=== PATIENT | female | born 1975 | race American Indian/Alaskan Native ===

== ENCOUNTER 2021-01-15 00:22 | Inpatient (IN) | payer BC ==
[2021-01-15 02:52] LABS: Basophils % (Auto) 0.2 % (0.0-1.8); Eosinophils % (Auto) 0.1 % (0.0-4.3); Hematocrit 40.5 % (30.3-42.9); Lymphocytes # (Auto) 1.3 K/mm3 (1.2-5.4); Lymphocytes % (Auto) 9.7 % (13.4-35.0); Mean Corpuscular HGB Conc 35 % (30-34); Mean Corpuscular Volume 90 fl (79-97); Monocytes # (Auto) 0.7 K/mm3 (0.0-0.8); Monocytes % (Auto) 5.7 % (0.0-7.3); Platelet Count 335 K/mm3 (140-440); Red Cell Distribution Width 12.9 % (13.2-15.2)
[2021-01-15 02:54] LABS: Bacteria,Urine 2+ /HPF (Negative); Bilirubin,Urine NEG (Negative); Blood,Urine SM (Negative); Color,Urine Yellow (Yellow); Hyaline Casts,Urine 1 /LPF; Mucus,Urine 3+ /HPF; Protein,Urine <15 mg/dL mg/dL (Negative)
[2021-01-15 03:22] LABS: Alanine Aminotransferase 91 units/L (7-56); Albumin 4.2 g/dL (3.9-5); BUN/Creatinine Ratio 14; Blood Urea Nitrogen 11 mg/dL (7-17); Calcium 9.1 mg/dL (8.4-10.2); Hemolysis Index 7
[2021-01-15] MEDS ORDERED: SODIUM CHLORIDE 0.9% 1000 ML 1,000 ML IV ONE (05:45)
[2021-01-15] MEDS ORDERED: ONDANSETRON 4 MG/2 ML INJ IV ONE (05:45)
[2021-01-15 06:22] LABS: HCG Qualitative,Urine Negative (Negative)
--- NOTE | 2021-01-15 06:50 | Cat Scan Report ---
CT ABDOMEN AND PELVIS WITHOUT CONTRAST INDICATION / CLINICAL INFORMATION: Questionable renal stone(s). Flank pain. TECHNIQUE: Axial CT images were obtained through the abdomen and pelvis without IV contrast. All CT scans at this location are performed using CT dose reduction for ALARA by means of automated exposure control. COMPARISON: None available. FINDINGS: LOWER CHEST: No significant abnormality. LIVER: No significant abnormality. GALLBLADDER: Multiple gallstones with mild wall thickening. Mild adjacent inflammation posteriorly. BILE DUCTS: No significant abnormality. PANCREAS: No significant abnormality. SPLEEN: No significant abnormality. ADRENALS: No significant abnormality. RIGHT KIDNEY / URETER: No significant abnormality. LEFT KIDNEY / URETER: No significant abnormality. STOMACH / SMALL BOWEL: No significant abnormality. COLON: No significant abnormality. APPENDIX: No significant abnormality. PERITONEUM: No free fluid. No free air. No fluid collection. LYMPH NODES: No significant adenopathy. VASCULAR STRUCTURES: No significant abnormality. URINARY BLADDER: No significant abnormality. REPRODUCTIVE ORGANS: IUD appears in satisfactory position. ADDITIONAL FINDINGS: None. SKELETAL SYSTEM: No significant abnormality. IMPRESSION: Gallstones with mild distention, adjacent inflammation and wall thickening worrisome for early cholecystitis. Signer Name: Renny Rose MD Signed: 01/15/2021 6:45 AM Workstation Name: [id number]
[2021-01-15] MEDS ORDERED: PIPERACILLIN/TAZOBACTAM 3.375 3.375 GM/50 ML BAG IV ONE (07:14)
[2021-01-15] MEDS ORDERED: MORPHINE 4 MG/1 ML INJ IV ONE (07:15)
--- NOTE | 2021-01-15 07:15 | Emergency Department Report ---
ED Abdominal Pain HPI - General Chief Complaint: Abdominal Pain Stated Complaint: GALLBLADDER PAIN Time Seen by Provider: 01/15/21 07:08 Source: patient Mode of arrival: Ambulatory Limitations: No Limitations - History of Present Illness Initial Comments: 45-year-old female presents to the ER today complaint of epigastric/right upper quadrant abdominal pain. Patient states that her pain started around 1030 last night. She states that it was a constant pain that radiated into her back. She states that last night it was a 10 out of 10 pain. Patient has been in the ER now for about 6 hours, and she states that her pain is now 6 out of 10. She rep orts nausea but no vomiting. She denies any diarrhea or any other bowel changes. She states that the pain last night started after she ate rice, chicken and bread. She reports that she had similar symptoms but milder around January 05. She saw her primary care doctor who ordered her an outpatient ultrasound and it did show gallstones. She states that her primary care doctor was supposed to refer her to a surgeon but she has not done so as yet. Patient states that she has been monitoring her diet, but she thought that since she was feeling better she is decided to eat a little more last night. She denies any abdominal surgeries in the past. Her last menstrual cycle was around January 04. She reports no other symptoms at this time. MD Complaint: abdominal pain -: Sudden (around 1030 last night ) Severity scale (0 -10): 2 - Related Data Allergies Allergy/AdvReac Type Severity Reaction Status Date / Time No Known Allergies Allergy Unverified 01/15/21 02:07 ED Review of Systems ROS: Stated complaint: GALLBLADDER PAIN Other details as noted in HPI Comment: All other systems reviewed and negative Constitutional: denies: chills, fever Eyes: denies: eye pain, eye discharge, vision change ENT: denies: ear pain, throat pain Respiratory: denies: cough, shortness of breath, wheezing Cardiovascular: denies: chest pain, palpitations Gastrointestinal: abdominal pain, nausea. denies: vomiting, diarrhea, constipation, hematemesis, melena, hematochezia Genitourinary: denies: urgency, dysuria, frequency, hematuria, discharge, ab normal menses, dyspareunia Musculoskeletal: denies: back pain, joint swelling, arthralgia Skin: denies: rash, lesions, change in color, change in hair/nails, pruritus Neurological: denies: headache, weakness, numbness, paresthesias, confusion, abnormal gait, vertigo Psychiatric: denies: anxiety, depression Hematological/Lymphatic: denies: easy bleeding, easy bruising, swollen glands ED Past Medical Hx - Past Medical History Previous Medical History?: No - Surgical History Past Surgical History?: No - Social History Smoking Status: Never Smoker Substance Use Type: None ED Physical Exam - General Limitations: No Limitations General appearance: alert, in no apparent distress - Head Head exam: Present: atraumatic, normocephalic, normal inspection - Eye Eye exam: Present: normal appearance, PERRL, EOMI Pupils: Present: normal accommodation - ENT ENT exam: Present: normal exam, mucous membranes moist - Neck Neck exam: Present: normal inspection, full ROM - Respiratory Respiratory exam: Present: normal lung sounds bilaterally. Absent: respiratory distress - Cardiovascular Cardiovascular Exam: Present: regular rate, normal rhythm, normal heart sounds - GI/Abdominal GI/Abdominal exam: Present: soft, tenderness (Right upper quadrant with mild guarding but no rebound). Absent: distended, rebound, rigid - Neurological Exam Neurological exam: Present: alert, oriented X3, CN II-XII intact, normal gait - Psychiatric Psychiatric exam: Present: normal affect, normal mood - Skin Skin exam: Present: intact ED Course Vital Signs 01/15/21 01/15/21 01/15/21 02:06 06:45 08:15 Temperature 98.9 F Pulse Rate 86 75 71 Respiratory 16 15 Rate Blood Pressure 139/66 Blood Pressure 111/65 [Left] O2 Sat by Pulse 99 99 Oximetry ED Medical Decision Making - Lab Data Result diagrams: 01/15/21 02:39 01/15/21 02:39 - Radiology Data Patient: JOSE CHAVEZ MR#: [id number] 28 : 1975 Acct:[id number] Age/Sex: 45 / F ADM Date: 01/15/21 Loc: ED Attending Dr: Ordering Physician: AYDEE IZQUIERDO NP Date of Service: 01/15/21 Procedure(s): CT abdomen pelvis wo con Accession Number(s): [id number] cc: AYDEE IZQUIERDO NP CT ABDOMEN AND PELVIS WITHOUT CONTRAST INDICATION / CLINICAL INFORMATION: Questionable renal stone(s). Flank pain. TECHNIQUE: Axial CT images were obtained through the abdomen and pelvis without IV contrast. All CT scans at this location are performed using CT dose reduction for ALARA by means of automated exposure control. COMPARISON: None available. FINDINGS: LOWER CHEST: No significant abnormality. LIVER: No significant abnormality. GALLBLADDER: Multiple gallstones with mild wall thickening. Mild adjacent inflammation posteriorly. BILE DUCTS: No significant abnormality. PANCREAS: No significant abnormality. SPLEEN: No significant abnormality. ADRENALS: No significant abnormality. RIGHT KIDNEY / URETER: No significant abnormality. LEFT KIDNEY / URETER: No significant abnormality. STOMACH / SMALL BOWEL: No significant abnormality. COLON: No significant abnormality. APPENDIX: No significant abnormality. PERITONEUM: No free fluid. No free air. No fluid collection. LYMPH NODES: No significant adenopathy. VASCULAR STRUCTURES: No significant abnormality. URINARY BLADDER: No significant abnormality. REPRODUCTIVE ORGANS: IUD appears in satisfactory position. ADDITIONAL FINDINGS: None. SKELETAL SYSTEM: No significant abnormality. IMPRESSION: Gallstones with mild distention, adjacent inflammation and wall thickening worrisome for early cholecystitis. Signer Name: Renny Rose MD Signed: 01/15/2021 6:45 AM Workstation Name: [id number] Transcribed By: ES Dictated By: Renny Rose MD Electronically Authenticated By: Renny Rose MD Signed Date/Time: 01/15/21644 DD/ 9 TD/TT: - Medical Decision Making 0733: Labs reviewed including CT. CT shows signs of early cholecystitis, patient also has leukocytosis with a white count of 13, and some elevation to AST and ALT. Discussed case with Dr. Bautista, general surgeon lathe operator contact lens and she has agreed to admission. Recommend admitting to medicine and she will consult. Discussed case with hospitalist, he accepts admission and for patient to be admitted to Dr Stokes. Discussed reason for admission with patient. She agrees with plan. She is currently stable. Critical care attestation.: If time is entered above; I have spent that time in minutes in the direct care of this critically ill patient, excluding procedure time. ED Disposition Clinical Impression: Acute cholecystitis Disposition: OP ADMIT IP TO THIS HOSP Is pt being admited?: Yes Condition: Stable
--- NOTE | 2021-01-15 09:29 | Consultation ---
History of Present Illness Consult date: 01/15/21 Reason for consult: gallstones - History of present illness History of present illness: 45 year old female presented to ED overnight with acute worsening abdominal pain. She had similar pain 01/05/2021 and had an US ordered by her pcp that showed gallstones. She was supposed to be referred to a surgeon but had not heard back. She had been feeling better since then, but ate a large meal last night that caused the pain to return even worse. She says the pain is 8/10 RUQ and radiates to her back. CT scan showed stones and a dilated gallbladder with inflammation. She also complains of some n/v, and has a significant family hx of gallbladder disease. She says she would like to have her gallbladder removed to try to avoid further attacks. Past History Past Medical History: hypothyroidism Past Surgical History: No surgical history Social history: no significant social history Medications and Allergies Allergies Allergy/AdvReac Type Severity Reaction Status Date / Time No Known Allergies Allergy Unverified 01/15/21 02:07 Review of Systems - Constitutional poor appetite - Cardiovascular no chest pain - Respiratory no cough, no shortness of breath - Gastrointestinal abdominal pain, nausea, vomiting Exam Vital Signs Temp Pulse Resp BP Pulse Ox 98.9 F 86 16 139/66 99 01/15/21 02:06 01/15/21 02:06 01/15/21 02:06 01/15/21 02:06 01/15/21 02:06 - General physical appearance Positive: well developed, no distress, moderate pain - Respiratory Positive: normal expansion, normal respiratory effort - Cardiovascular Heart Sounds: Present: S1 & S2 - Extremities Extremities: no ischemia - Abdomen Abdomen: Present: soft, other (tender to palpation RUQ, and epigastric areas). Absent: distended Results - Labs 01/15/21 02:39 01/15/21 02:39 Abnormal lab results 01/15/21 01/15/21 01/15/21 Range/Units 02:39 02:39 Unknown WBC 13.0 H (4.5-11.0) K/mm3 MCHC 35 H (30-34) % RDW 12.9 L (13.2-15.2) % Lymph % (Auto) 9.7 L (13.4-35.0) % Seg Neutrophils % 84.3 H (40.0-70.0) % Seg Neutrophils # 11.0 H (1.8-7.7) K/mm3 Glucose 114 H (65-100) mg/dL AST 171 H (5-40) units/L ALT 91 H (7-56) units/L Urine WBC (Auto) 16.0 H (0.0-6.0) /HPF U Epithel Cells (Auto) 17.0 H (0-13.0) /HPF Diabetes panel 01/15/21 Range/Units 02:39 Sodium 142 (137-145) mmol/L Potassium 4.1 (3.6-5.0) mmol/L Chloride 104.5 (98-107) mmol/L Carbon Dioxide 28 (22-30) mmol/L BUN 11 (7-17) mg/dL Creatinine 0.8 (0.6-1.2) mg/dL Glucose 114 H (65-100) mg/dL Calcium 9.1 (8.4-10.2) mg/dL AST 171 H (5-40) units/L ALT 91 H (7-56) units/L Alkaline Phosphatase 102 (35-129) units/L Total Protein 7.7 (6.3-8.2) g/dL Albumin 4.2 (3.9-5) g/dL Calcium panel 01/15/21 Range/Units 02:39 Calcium 9.1 (8.4-10.2) mg/dL Albumin 4.2 (3.9-5) g/dL Pituitary panel 01/15/21 Range/Units 02:39 Sodium 142 (137-145) mmol/L Potassium 4.1 (3.6-5.0) mmol/L Chloride 104.5 (98-107) mmol/L Carbon Dioxide 28 (22-30) mmol/L BUN 11 (7-17) mg/dL Creatinine 0.8 (0.6-1.2) mg/dL Glucose 114 H (65-100) mg/dL Calcium 9.1 (8.4-10.2) mg/dL Adrenal panel 01/15/21 Range/Units 02:39 Sodium 142 (137-145) mmol/L Potassium 4.1 (3.6-5.0) mmol/L Chloride 104.5 (98-107) mmol/L Carbon Dioxide 28 (22-30) mmol/L BUN 11 (7-17) mg/dL Creatinine 0.8 (0.6-1.2) mg/dL Glucose 114 H (65-100) mg/dL Calcium 9.1 (8.4-10.2) mg/dL Total Bilirubin 0.80 (0.1-1.2) mg/dL AST 171 H (5-40) units/L ALT 91 H (7-56) units/L Alkaline Phosphatase 102 (35-129) units/L Total Protein 7.7 (6.3-8.2) g/dL Albumin 4.2 (3.9-5) g/dL - Imaging CT scan - abdomen: report reviewed, image reviewed CT scan - pelvis: report reviewed, image reviewed Assessment and Plan 45 year old female with cholecystitis, cholelithiasis. Afebrile and stable. Pt is consented for lap shelley scheduled for later today. Pt expressed understanding of the risks and benefits.
--- NOTE | 2021-01-15 09:30 | Event Note ---
Date: 01/15/21 Consulted on pt for cholecystitis. Will evaluate patient later this morning when done with office hours. If pt consents and she meets clinical criteria, will take to OR this afternoon for lap shelley.
--- NOTE | 2021-01-15 09:53 | History and Physical Report ---
History of Present Illness Date of admission: 01/15/21 07:37 History of present illness: 45 year old female with a medical history of hypothyroidism presented to ED overnight with acute worsening abdominal pain. Patient states that she has had similar pain in the past was told that she had gallstones. She was supposed to see general surgeon but has not been able to do that. She started having similar abdominal pain last night and presented to the emergency room for evaluation. Here in the ER, abdominal imaging showed stones with possible cholecystitis and she is now being admitted for further evaluation. Surgery has evaluated the patient and she will be going for laparoscopic cholecystectomy. Past History Past Medical History: hypothyroidism Past Surgical History: No surgical history Social history: Medications and Allergies Allergies Allergy/AdvReac Type Severity Reaction Status Date / Time No Known Allergies Allergy Unverified 01/15/21 02:07 Review of Systems All systems: negative Exam - Constitutional Vitals: Temp Pulse Resp BP Pulse Ox 98.9 F 71 15 111/65 99 01/15/21 02:06 01/15/21 08:15 01/15/21 06:45 01/15/21 08:15 01/15/21 06:45 General appearance: Present: no acute distress, well-nourished - EENT Eyes: Present: PERRL ENT: hearing intact, clear oral mucosa - Neck Neck: Present: supple, normal ROM - Respiratory Respiratory effort: normal Respiratory: bilateral: CTA - Cardiovascular Heart Sounds: Present: S1 & S2. Absent: rub, click - Extremities Extremities: pulses symmetrical, No edema Peripheral Pulses: within normal limits - Abdominal General gastrointestinal: Present: soft, non-tender, non-distended, normal bowel sounds Female genitourinary: Present: normal - Integumentary Integumentary: Present: clear, warm, dry - Musculoskeletal Musculoskeletal: gait normal, strength equal bilaterally - Psychiatric Psychiatric: appropriate mood/affect, intact judgment & insight - Neurologic Neurologic: CNII-XII intact, moves all extremities Results - Labs CBC & Chem 7: 01/15/21 02:39 01/15/21 02:39 Labs: Laboratory Last Values WBC 13.0 K/mm3 (4.5-11.0) H 01/15/21 02:39 RBC 4.50 M/mm3 (3.65-5.03) 01/15/21 02:39 Hgb 14.0 gm/dl (10.1-14.3) 01/15/21 02:39 Hct 40.5 % (30.3-42.9) 01/15/21 02:39 MCV 90 fl (79-97) 01/15/21 02:39 MCH 31 pg (28-32) 01/15/21 02:39 MCHC 35 % (30-34) H 01/15/21 02:39 RDW 12.9 % (13.2-15.2) L 01/15/21 02:39 Plt Count 335 K/mm3 (140-440) 01/15/21 02:39 Lymph % (Auto) 9.7 % (13.4-35.0) L 01/15/21 02:39 [place] % (Auto) 5.7 % (0.0-7.3) 01/15/21 02:39 Eos % (Auto) 0.1 % (0.0-4.3) 01/15/21 02:39 Baso % (Auto) 0.2 % (0.0-1.8) 01/15/21 02:39 Lymph # (Auto) 1.3 K/mm3 (1.2-5.4) 01/15/21 02:39 [place] # (Auto) 0.7 K/mm3 (0.0-0.8) 01/15/21 02:39 Eos # (Auto) 0.0 K/mm3 (0.0-0.4) 01/15/21 02:39 Baso # (Auto) 0.0 K/mm3 (0.0-0.1) 01/15/21 02:39 Seg Neutrophils % 84.3 % (40.0-70.0) H 01/15/21 02:39 Seg Neutrophils # 11.0 K/mm3 (1.8-7.7) H 01/15/21 02:39 Sodium 142 mmol/L (137-145) 01/15/21 02:39 Potassium 4.1 mmol/L (3.6-5.0) 01/15/21 02:39 Chloride 104.5 mmol/L (98-107) 01/15/21 02:39 Carbon Dioxide 28 mmol/L (22-30) 01/15/21 02:39 Anion Gap 14 mmol/L 01/15/21 02:39 BUN 11 mg/dL (7-17) 01/15/21 02:39 Creatinine 0.8 mg/dL (0.6-1.2) 01/15/21 02:39 Estimated GFR > 60 ml/min 01/15/21 02:39 BUN/Creatinine Ratio 14 % 01/15/21 02:39 Glucose 114 mg/dL (65-100) H 01/15/21 02:39 Calcium 9.1 mg/dL (8.4-10.2) 01/15/21 02:39 Total Bilirubin 0.80 mg/dL (0.1-1.2) 01/15/21 02:39 AST 171 units/L (5-40) H 01/15/21 02:39 ALT 91 units/L (7-56) H 01/15/21 02:39 Alkaline Phosphatase 102 units/L (35-129) 01/15/21 02:39 Total Protein 7.7 g/dL (6.3-8.2) 01/15/21 02:39 Albumin 4.2 g/dL (3.9-5) 01/15/21 02:39 Albumin/Globulin Ratio 1.2 % 01/15/21 02:39 Lipase 30 units/L (13-60) 01/15/21 02:39 Urine Color Yellow (Yellow) 01/15/21 Unknown Urine Turbidity Cloudy (Clear) 01/15/21 Unknown Urine pH 5.0 (5.0-7.0) 01/15/21 Unknown Ur Specific [place] 1.012 (1.003-1.030) 01/15/21 Unknown Urine Protein <15 mg/dl mg/dL (Negative) 01/15/21 Unknown Urine Glucose (UA) Neg mg/dL (Negative) 01/15/21 Unknown Urine Ketones Neg mg/dL (Negative) 01/15/21 Unknown Urine Blood Sm (Negative) 01/15/21 Unknown Urine Nitrite Neg (Negative) 01/15/21 Unknown Urine Bilirubin Neg (Negative) 01/15/21 Unknown Urine Urobilinogen 4.0 mg/dL (<2.0) 01/15/21 Unknown Ur Leukocyte Esterase Lg (Negative) 01/15/21 Unknown Urine WBC (Auto) 16.0 /HPF (0.0-6.0) H 01/15/21 Unknown Urine RBC (Auto) 29.0 /HPF (0.0-6.0) 01/15/21 Unknown U Epithel Cells (Auto) 17.0 /HPF (0-13.0) H 01/15/21 Unknown Urine Bacteria (Auto) 2+ /HPF (Negative) 01/15/21 Unknown Hyaline Casts 1 /LPF 01/15/21 Unknown Urine Mucus 3+ /HPF 01/15/21 Unknown Urine Yeast (Budding) Few /HPF 01/15/21 Unknown Urine HCG, Qual Negative (Negative) 01/15/21 Unknown Assessment and Plan Assessment and plan: #Cholecystitis with cholelithiasis Continue IV antibiotics Plan for laparoscopic cholecystectomy by surgery Surgery evaluation #Hypothyroidism Continue levothyroxine 50 mcg daily #DVT prophylaxis-Heparin
[2021-01-15] MEDS ORDERED: ONDANSETRON 4 MG/2 ML INJ IV PRN (12:40)
[2021-01-15] MEDS ORDERED: ACETAMINOPHEN 325 MG TAB PO PRN (12:40)
[2021-01-15] MEDS: cefTRIAXone/NS 1 GM/50 ML 1 GM/50 ML BAG IV SCH (13:54)
[2021-01-15] MEDS: metroNIDAZOLE/NS 500 MG/100 ML 500 MG/100 ML BAG IV SCH ×2 (13:54→22:16)
--- NOTE | 2021-01-15 14:34 | Anesthesia Consultation ---
Anesthesia Consult and Med Hx Date of service: 01/15/21 - Airway Anesthetic Teeth Evaluation: Good ROM Head & Neck: Adequate Mental/Hyoid Distance: Adequate Mallampati Class: Class I Intubation Access Assessment: Good - Pulmonary Exam CTA: Yes - Pre-Operative Health Status ASA Pre-Surgery Classification: ASA2 Proposed Anesthetic Plan: General - Pulmonary Hx Smoking: No Hx Asthma: No Hx Respiratory Symptoms: No - Cardiovascular System Hx Hypertension: No Hx Coronary Artery Disease: No Hx Heart Attack/AMI: No Hx Valvular Heart Disease: No Hx Heart Murmur: No - Central Nervous System Hx Neuromuscular Disorder: No Hx Seizures: No CVA: No Hx Psychiatric Problems: No - Endocrine Hx Renal Disease: No Hx Liver Disease: No Hx Insulin Dependent Diabetes: No Hx Non-Insulin Dependent Diabetes: No Hx Thyroid Disease: Yes Hx Hypothyroidism: Yes - Hematic Hx Anemia: No Hx Sickle Cell Disease: No - Other Systems Hx Alcohol Use: Yes (Sparingly) Hx Substance Use: No Hx Cancer: No - Additional Comments Anesthesia Medical History Comments: Patient denied previous anesthesia complications.
--- NOTE | 2021-01-15 14:35 | Anesthesia Day of Surgery ---
Anesthesia Day of Surgery - Day of Surgery Patient Examined: Yes Patient H&P Reviewed: Yes Patient is NPO: Yes Beta Blockers: No Cardiac Clearance: No Pulmonary Clearance: No Pavan's Test: N/A
[2021-01-15] MEDS ORDERED: HYDROmorphone 1 MG/1 ML INJ IV PRN (14:49)
[2021-01-15] MEDS ORDERED: SCOPOLAMINE TRANSDERMAL PATCH 72 HR TD NR (15:00)
[2021-01-15] MEDS ORDERED: SUCCINYLCHOLINE CHLORIDE 200 MG/10 ML INJ MDV ONE (17:21)
[2021-01-15] MEDS ORDERED: fentaNYL 100 MCG/2 ML INJ ONE (17:21)
[2021-01-15] MEDS ORDERED: LIDOCAINE MPF (2%) 20 MG/1 ML VIAL 5 ML ONE (17:21)
[2021-01-15] MEDS ORDERED: propofoL 200 MG/20 ML VIAL IV ONE (17:21)
[2021-01-15] MEDS ORDERED: ROCURONIUM 50 MG/5 ML INJ IV ONE (17:21)
[2021-01-15] MEDS ORDERED: MIDAZOLAM 2 MG/2 ML INJ ONE (17:27)
[2021-01-15] MEDS ORDERED: LACTATED RINGERS 1,000 ML ONE ×2 (17:48→19:42)
[2021-01-15] MEDS ORDERED: NEOSTIGMINE 10MG/10 ML INJ MDV ONE (18:00)
[2021-01-15] MEDS ORDERED: GLYCOPYRROLATE 0.4 MG/2 ML INJ ONE (18:00)
[2021-01-15] MEDS ORDERED: KETOROLAC 30 MG/1 ML INJ ONE (18:00)
[2021-01-15] MEDS ORDERED: LIDOCAINE (1%) 10 MG/1 ML VIAL 20 ML MDV ONE (18:06)
[2021-01-15] MEDS ORDERED: BUPIVACAINE/PF (0.5%) 5 MG/1 ML 30 ML VIAL INFILTRATI ONE ×2 (18:06→18:27)
[2021-01-15] MEDS ORDERED: dexAMETHasone 20 MG/5 ML VIAL ONE (18:12)
[2021-01-15] MEDS ORDERED: SODIUM CHLORIDE 0.9% IRR 1,500 ML BOTTLE IR ONE (18:28)
[2021-01-15] MEDS ORDERED: LIDOCAINE (1%) 10 MG/1 ML VIAL 20 ML MDV INFILTRATI ONE (18:28)
[2021-01-15] MEDS ORDERED: SODIUM CHLORIDE 0.9% IRRIG SOLN 2000 ML IR ONE (18:49)
--- NOTE | 2021-01-15 19:43 | Operative Report ---
Operative Report Operative Report: Procedure Performed: Lap cholecystectomy Date of Service: 01/15/2021 Primary Surgeon: Vanda Bautista MD Head Of Housekeeping Surgeon: Shira Mcmahon DO Anesthesia: General Pre-Operative Diagnosis: cholecytitis, cholelithiasis Post-Operative Diagnosis: Same Indications for Procedure: 45 year old female presented to ER with RUQ abdominal pain, US from a week ago showed cholelithiasis, CT scan this admission showed cholecystitis with cholelithiasis. Pt was consented for laparoscopic cholecy stectomy. Description of Procedure(s): The patient was brought to the operating room and underwent general anesthesia after lower extremity SCD were placed. The abdomen was prepped and draped in the standard fashion. IV antibiotics were given and a time out was performed. Using a veress needle via a stab incision in the umbilicus, the abdomen was insuflated to a pressure of 15mmHg. Using optivew technique, a 5mm trocar was placed just superior and to the left of the umbilicus. There was no gross injury noted to any intra-abdominal structures. After which working trocars were placed under direct visualization. A 12 mm trocar was placed in the epigastrium, and two more 5 mm trocars were inserted in the right lateral sites. The gallbladder was located and grasped at the fundus and retracted up toward the patient's right shoulder. The infundibulum was grasped and retracted laterally. A window was made between the cystic artery and the cystic duct, clearly delineating the two structures. These were clipped with a 10 mm clip electrical software engineer and divided. The peritoneum was incised with hook cautery, and the gallbladder was taken from the liver bed, ensuring hemostatis. The endocatch bag was placed in the abdomen and the gallbladder was then removed from the abdomen. The right upper quadrant was irrigated and aspirated secondary to spillage of bile from the gallbladder after a hole was made in the gallbladder wall while removing it from the gallbladder fossa. The liver bed was examined and the trocars removed under direct visualization. The insufflation was then terminated. The epigastric incision was closed with a O- Vicryl suture using a suture passer device. The skin incisions were closed using 4-0 Monocryl sutures. All the wounds dressed with dermabond. 50-50 Marcaine lidocaine mixture was used to anesthetize all incisions. The patient tolerated the procedure well, was extubated and taken to the recovery room in satisfactory condition. Finding(s): Cholelithiasis cholecystitis Intra-Operative Complications: none Specimens Removed: Gallbladder Estimated Blood Loss: <5ml
[2021-01-16] MEDS: metroNIDAZOLE/NS 500 MG/100 ML 500 MG/100 ML BAG IV SCH ×3 (06:33→22:03)
[2021-01-16 07:47] LABS: Hematocrit 38.5 % (30.3-42.9); Hemoglobin 12.9 gm/dl (10.1-14.3); Lymphocytes # (Auto) 0.7 K/mm3 (1.2-5.4); Lymphocytes % (Auto) 9.6 % (13.4-35.0); Mean Corpuscular HGB Conc 34 % (30-34); Mean Corpuscular Volume 90 fl (79-97); Monocytes # (Auto) 0.3 K/mm3 (0.0-0.8); Monocytes % (Auto) 4.7 % (0.0-7.3); Platelet Count 298 K/mm3 (140-440); Red Blood Count 4.27 M/mm3 (3.65-5.03); Red Cell Distribution Width 12.9 % (13.2-15.2)
[2021-01-16 07:58] LABS: Alanine Aminotransferase 687 units/L (7-56); Albumin 3.4 g/dL (3.9-5); Blood Urea Nitrogen 9 mg/dL (7-17); Calcium 8.6 mg/dL (8.4-10.2); Hemolysis Index 5
[2021-01-16 08:31] LABS: BUN/Creatinine Ratio 18
--- NOTE | 2021-01-16 10:31 | Progress Note ---
Assessment and Plan Assessment and plan: #Cholecystitis with cholelithiasis IV antibiotics Status post laparoscopic cholecystectomy on 01/15. Surgery on board Has elevated LFTs and bilirubin-likely related to procedure She denies any pain Started on clear liquid diet #Hypothyroidism Continue levothyroxine 50 mcg daily #DVT prophylaxis-Heparin History Interval history: Patient seen and examined at bedside this morning Has no complaints Denies any abdominal pain Surgery on board Started on clear liquid diet Labs reviewed-LFTs and bilirubin up Hospitalist Physical - Physical exam Narrative exam: VITAL SIGNS: Reviewed. GENERAL: Awake HEAD: No signs of head trauma. EYES: Pupils are equal. Extraocular motions intact. MOUTH: Oropharynx is normal. NECK: No adenopathy, no JVD. CHEST: Chest with diminished breath sounds bilaterally. No wheezes, rales, or rhonchi. CARDIAC: normal S1 and S2, without murmurs, gallops, or rubs. ABDOMEN: Soft, non tender and non distended. No rebound or guarding, and no masses palpated. Bowel Sounds normal. MUSCULOSKELETAL: No edema NEUROLOGIC EXAM: Alert and oriented x3. No focal neurologic deficits SKIN: No obvious lesions - Constitutional Vitals: Temp Pulse Resp BP Pulse Ox 97.9 F 75 16 125/73 99 01/16/21 05:40 01/16/21 05:40 01/16/21 05:40 01/16/21 05:40 01/16/21 05:40 Results - Labs CBC & Chem 7: 01/16/21 07:17 01/16/21 07:17 Labs: Laboratory Last Values WBC 7.2 K/mm3 (4.5-11.0) 01/16/21 07:17 RBC 4.27 M/mm3 (3.65-5.03) 01/16/21 07:17 Hgb 12.9 gm/dl (10.1-14.3) 01/16/21 07:17 Hct 38.5 % (30.3-42.9) 01/16/21 07:17 MCV 90 fl (79-97) 01/16/21 07:17 MCH 30 pg (28-32) 01/16/21 07:17 MCHC 34 % (30-34) 01/16/21 07:17 RDW 12.9 % (13.2-15.2) L 01/16/21 07:17 Plt Count 298 K/mm3 (140-440) 01/16/21 07:17 Lymph % (Auto) 9.6 % (13.4-35.0) L 01/16/21 07:17 [place] % (Auto) 4.7 % (0.0-7.3) 01/16/21 07:17 Eos % (Auto) 0.0 % (0.0-4.3) 01/16/21 07:17 Baso % (Auto) 0.0 % (0.0-1.8) 01/16/21 07:17 Lymph # (Auto) 0.7 K/mm3 (1.2-5.4) L 01/16/21 07:17 [place] # (Auto) 0.3 K/mm3 (0.0-0.8) 01/16/21 07:17 Eos # (Auto) 0.0 K/mm3 (0.0-0.4) 01/16/21 07:17 Baso # (Auto) 0.0 K/mm3 (0.0-0.1) 01/16/21 07:17 Seg Neutrophils % 85.7 % (40.0-70.0) H 01/16/21 07:17 Seg Neutrophils # 6.1 K/mm3 (1.8-7.7) 01/16/21 07:17 Sodium 137 mmol/L (137-145) 01/16/21 07:17 Potassium 4.5 mmol/L (3.6-5.0) 01/16/21 07:17 Chloride 104.7 mmol/L (98-107) 01/16/21 07:17 Carbon Dioxide 24 mmol/L (22-30) 01/16/21 07:17 Anion Gap 13 mmol/L 01/16/21 07:17 BUN 9 mg/dL (7-17) 01/16/21 07:17 Creatinine 0.5 mg/dL (0.6-1.2) L 01/16/21 07:17 Estimated GFR > 60 ml/min 01/16/21 07:17 BUN/Creatinine Ratio 18 % 01/16/21 07:17 Glucose 114 mg/dL (65-100) H 01/16/21 07:17 Calcium 8.6 mg/dL (8.4-10.2) 01/16/21 07:17 Total Bilirubin 3.40 mg/dL (0.1-1.2) H 01/16/21 07:17 AST 514 units/L (5-40) H 01/16/21 07:17 ALT 687 units/L (7-56) H 01/16/21 07:17 Alkaline Phosphatase 175 units/L (35-129) H 01/16/21 07:17 Total Protein 6.4 g/dL (6.3-8.2) 01/16/21 07:17 Albumin 3.4 g/dL (3.9-5) L 01/16/21 07:17 Albumin/Globulin Ratio 1.1 % 01/16/21 07:17 Lipase 30 units/L (13-60) 01/15/21 02:39 Urine Color Yellow (Yellow) 01/15/21 Unknown Urine Turbidity Cloudy (Clear) 01/15/21 Unknown Urine pH 5.0 (5.0-7.0) 01/15/21 Unknown Ur Specific [place] 1.012 (1.003-1.030) 01/15/21 Unknown Urine Protein <15 mg/dl mg/dL (Negative) 01/15/21 Unknown Urine Glucose (UA) Neg mg/dL (Negative) 01/15/21 Unknown Urine Ketones Neg mg/dL (Negative) 01/15/21 Unknown Urine Blood Sm (Negative) 01/15/21 Unknown Urine Nitrite Neg (Negative) 01/15/21 Unknown Urine Bilirubin Neg (Negative) 01/15/21 Unknown Urine Urobilinogen 4.0 mg/dL (<2.0) 01/15/21 Unknown Ur Leukocyte Esterase Lg (Negative) 01/15/21 Unknown Urine WBC (Auto) 16.0 /HPF (0.0-6.0) H 01/15/21 Unknown Urine RBC (Auto) 29.0 /HPF (0.0-6.0) 01/15/21 Unknown U Epithel Cells (Auto) 17.0 /HPF (0-13.0) H 01/15/21 Unknown Urine Bacteria (Auto) 2+ /HPF (Negative) 01/15/21 Unknown Hyaline Casts 1 /LPF 01/15/21 Unknown Urine Mucus 3+ /HPF 01/15/21 Unknown Urine Yeast (Budding) Few /HPF 01/15/21 Unknown Urine HCG, Qual Negative (Negative) 01/15/21 Unknown Ortiz/IV: Voiding Method Toilet Active Medications - Current Medications Current Medications: Generic Name Dose Route Start Last Admin Trade Name Freq PRN Reason Stop Dose Admin Acetaminophen 650 mg 01/15/21 12:40 Acetaminophen 325 Mg Tab PO Q4H PRN Pain MILD(1-3)/Fever >100.5/MERCEDES Metronidazole 500 mg in 100 mls @ 100 mls/hr 01/15/21 14:00 01/16/21 06:33 Flagyl 500 Mg/100 Ml IV 100 mls/hr Q8HR PRAVIN Administration Protocol Ceftriaxone Sodium 1 gm in 50 mls @ 100 mls/hr 01/15/21 13:00 01/15/21 13:54 Rocephin/Ns 1 Gm/50 Ml IV 100 mls/hr Q24H PRAVIN Administration Protocol Ondansetron HCl 4 mg 01/15/21 12:40 Ondansetron 4 Mg/2 Ml Inj IV Q8H PRN Nausea And Vomiting Scopolamine 1 each 01/15/21 15:00 Scopolamine Transdermal Patch 72 Hr TD 01/18/21 14:59 PREOP NR Sodium Chloride 10 ml 01/15/21 22:00 01/15/21 22:16 Sodium Chloride 0.9% 10 Ml Flush Syringe IV 10 ml BID PRAVIN Administration Sodium Chloride 10 ml 01/15/21 12:40 Sodium Chloride 0.9% 10 Ml Flush Syringe IV PRN PRN LINE FLUSH
[2021-01-16] MEDS: cefTRIAXone/NS 1 GM/50 ML 1 GM/50 ML BAG IV SCH (13:04)
--- NOTE | 2021-01-16 13:08 | Progress Note ---
Assessment and Plan POD#1 s/p lap shelley. Afebrile and stable with acute elevation of bilirubin and alk phos c/s with possible choledocholithaisis. Consulted GI and spoke with Dr. Radha Aceves who evaluate pt. MRCP ordered. Pt can continue on abx. No acute further surgical intervention planned at this time. Subjective Date of service: 01/16/21 Patient Reports: Positive: feels better, pain is less Narrative: Pt says she feels pretty good. Pain is controlled no n/v. Objective Vital Signs - 12hr 01/16/21 05:40 Temperature 97.9 F Pulse Rate 75 Respiratory 16 Rate Blood Pressure 125/73 O2 Sat by Pulse 99 Oximetry - General physical appearance well developed, well nourished, no distress, no pain - Respiratory normal expansion, normal respiratory effort - Abdomen soft, not distended, not rebound, not guarding, other (appropritely tender to palpation, incisions c/d/i) - Labs 01/16/21 07:17 01/16/21 07:17 Diabetes panel 01/16/21 Range/Units 07:17 Sodium 137 (137-145) mmol/L Potassium 4.5 (3.6-5.0) mmol/L Chloride 104.7 (98-107) mmol/L Carbon Dioxide 24 (22-30) mmol/L BUN 9 (7-17) mg/dL Creatinine 0.5 L (0.6-1.2) mg/dL Glucose 114 H (65-100) mg/dL Calcium 8.6 (8.4-10.2) mg/dL AST 514 H (5-40) units/L ALT 687 H (7-56) units/L Alkaline Phosphatase 175 H (35-129) units/L Total Protein 6.4 (6.3-8.2) g/dL Albumin 3.4 L (3.9-5) g/dL Calcium panel 01/16/21 Range/Units 07:17 Calcium 8.6 (8.4-10.2) mg/dL Albumin 3.4 L (3.9-5) g/dL Pituitary panel 01/16/21 Range/Units 07:17 Sodium 137 (137-145) mmol/L Potassium 4.5 (3.6-5.0) mmol/L Chloride 104.7 (98-107) mmol/L Carbon Dioxide 24 (22-30) mmol/L BUN 9 (7-17) mg/dL Creatinine 0.5 L (0.6-1.2) mg/dL Glucose 114 H (65-100) mg/dL Calcium 8.6 (8.4-10.2) mg/dL Adrenal panel 01/16/21 Range/Units 07:17 Sodium 137 (137-145) mmol/L Potassium 4.5 (3.6-5.0) mmol/L Chloride 104.7 (98-107) mmol/L Carbon Dioxide 24 (22-30) mmol/L BUN 9 (7-17) mg/dL Creatinine 0.5 L (0.6-1.2) mg/dL Glucose 114 H (65-100) mg/dL Calcium 8.6 (8.4-10.2) mg/dL Total Bilirubin 3.40 H (0.1-1.2) mg/dL AST 514 H (5-40) units/L ALT 687 H (7-56) units/L Alkaline Phosphatase 175 H (35-129) units/L Total Protein 6.4 (6.3-8.2) g/dL Albumin 3.4 L (3.9-5) g/dL
[2021-01-17] MEDS: metroNIDAZOLE/NS 500 MG/100 ML 500 MG/100 ML BAG IV SCH ×3 (06:09→22:37)
[2021-01-17 08:26] LABS: Alanine Aminotransferase 502 units/L (7-56); Albumin 3.2 g/dL (3.9-5); Blood Urea Nitrogen 12 mg/dL (7-17); Calcium 8.2 mg/dL (8.4-10.2); Hemolysis Index 89
[2021-01-17 08:28] LABS: BUN/Creatinine Ratio 24
--- NOTE | 2021-01-17 10:09 | Progress Note ---
Assessment and Plan Assessment and plan: #Cholecystitis with cholelithiasis IV antibiotics Status post laparoscopic cholecystectomy on 01/15. Surgery on board Has elevated LFTs and bilirubin. GI consulted. MRCP ordered Liquid diet #Hypothyroidism Continue levothyroxine 50 mcg daily #DVT prophylaxis-Heparin History Interval history: 01/16. Patient seen and examined at bedside this morning. Has no complaints. Denies any abdominal pain. Surgery on board. Started on clear liquid diet. Labs reviewed-LFTs and bilirubin up. GI consulted. MRCP advised 01/17. Bilirubin 4.2 today. She denies any complaints. AST is trending down. Plan for MRCP today to rule out any CBD stone. Continue IV antibiotics Hospitalist Physical - Physical exam Narrative exam: VITAL SIGNS: Reviewed. GENERAL: Awake HEAD: No signs of head trauma. EYES: Pupils are equal. Extraocular motions intact. MOUTH: Oropharynx is normal. NECK: No adenopathy, no JVD. CHEST: Chest with diminished breath sounds bilaterally. No wheezes, rales, or rhonchi. CARDIAC: normal S1 and S2, without murmurs, gallops, or rubs. ABDOMEN: Soft, non tender and non distended. No rebound or guarding, and no masses palpated. Bowel Sounds normal. MUSCULOSKELETAL: No edema NEUROLOGIC EXAM: Alert and oriented x3. No focal neurologic deficits SKIN: No obvious lesions - Constitutional Vitals: Temp Pulse Resp BP Pulse Ox 98.6 F 61 18 112/55 97 01/16/21 23:04 01/16/21 23:04 01/16/21 23:04 01/16/21 23:04 01/16/21 23:04 Results - Labs CBC & Chem 7: 01/18/21 07:30 01/18/21 07:30 Labs: Laboratory Last Values WBC 7.2 K/mm3 (4.5-11.0) 01/16/21 07:17 RBC 4.27 M/mm3 (3.65-5.03) 01/16/21 07:17 Hgb 12.9 gm/dl (10.1-14.3) 01/16/21 07:17 Hct 38.5 % (30.3-42.9) 01/16/21 07:17 MCV 90 fl (79-97) 01/16/21 07:17 MCH 30 pg (28-32) 01/16/21 07:17 MCHC 34 % (30-34) 01/16/21 07:17 RDW 12.9 % (13.2-15.2) L 01/16/21 07:17 Plt Count 298 K/mm3 (140-440) 01/16/21 07:17 Lymph % (Auto) 9.6 % (13.4-35.0) L 01/16/21 07:17 [place] % (Auto) 4.7 % (0.0-7.3) 01/16/21 07:17 Eos % (Auto) 0.0 % (0.0-4.3) 01/16/21 07:17 Baso % (Auto) 0.0 % (0.0-1.8) 01/16/21 07:17 Lymph # (Auto) 0.7 K/mm3 (1.2-5.4) L 01/16/21 07:17 [place] # (Auto) 0.3 K/mm3 (0.0-0.8) 01/16/21 07:17 Eos # (Auto) 0.0 K/mm3 (0.0-0.4) 01/16/21 07:17 Baso # (Auto) 0.0 K/mm3 (0.0-0.1) 01/16/21 07:17 Seg Neutrophils % 85.7 % (40.0-70.0) H 01/16/21 07:17 Seg Neutrophils # 6.1 K/mm3 (1.8-7.7) 01/16/21 07:17 Sodium 140 mmol/L (137-145) 01/17/21 06:59 Potassium 4.0 mmol/L (3.6-5.0) 01/17/21 06:59 Chloride 104.6 mmol/L (98-107) 01/17/21 06:59 Carbon Dioxide 24 mmol/L (22-30) 01/17/21 06:59 Anion Gap 15 mmol/L 01/17/21 06:59 BUN 12 mg/dL (7-17) 01/17/21 06:59 Creatinine 0.5 mg/dL (0.6-1.2) L 01/17/21 06:59 Estimated GFR > 60 ml/min 01/17/21 06:59 BUN/Creatinine Ratio 24 % 01/17/21 06:59 Glucose 78 mg/dL (65-100) 01/17/21 06:59 Calcium 8.2 mg/dL (8.4-10.2) L 01/17/21 06:59 Total Bilirubin 4.20 mg/dL (0.1-1.2) H 01/17/21 06:59 AST 231 units/L (5-40) H 01/17/21 06:59 ALT 502 units/L (7-56) H 01/17/21 06:59 Alkaline Phosphatase 192 units/L (35-129) H 01/17/21 06:59 Total Protein 6.1 g/dL (6.3-8.2) L 01/17/21 06:59 Albumin 3.2 g/dL (3.9-5) L 01/17/21 06:59 Albumin/Globulin Ratio 1.1 % 01/17/21 06:59 Lipase 30 units/L (13-60) 01/15/21 02:39 Urine Color Yellow (Yellow) 01/15/21 Unknown Urine Turbidity Cloudy (Clear) 01/15/21 Unknown Urine pH 5.0 (5.0-7.0) 01/15/21 Unknown Ur Specific [place] 1.012 (1.003-1.030) 01/15/21 Unknown Urine Protein <15 mg/dl mg/dL (Negative) 01/15/21 Unknown Urine Glucose (UA) Neg mg/dL (Negative) 01/15/21 Unknown Urine Ketones Neg mg/dL (Negative) 01/15/21 Unknown Urine Blood Sm (Negative) 01/15/21 Unknown Urine Nitrite Neg (Negative) 01/15/21 Unknown Urine Bilirubin Neg (Negative) 01/15/21 Unknown Urine Urobilinogen 4.0 mg/dL (<2.0) 01/15/21 Unknown Ur Leukocyte Esterase Lg (Negative) 01/15/21 Unknown Urine WBC (Auto) 16.0 /HPF (0.0-6.0) H 01/15/21 Unknown Urine RBC (Auto) 29.0 /HPF (0.0-6.0) 01/15/21 Unknown U Epithel Cells (Auto) 17.0 /HPF (0-13.0) H 01/15/21 Unknown Urine Bacteria (Auto) 2+ /HPF (Negative) 01/15/21 Unknown Hyaline Casts 1 /LPF 01/15/21 Unknown Urine Mucus 3+ /HPF 01/15/21 Unknown Urine Yeast (Budding) Few /HPF 01/15/21 Unknown Urine HCG, Qual Negative (Negative) 01/15/21 Unknown Ortiz/IV: Voiding Method Toilet Active Medications - Current Medications Current Medications: Generic Name Dose Route Start Last Admin Trade Name Freq PRN Reason Stop Dose Admin Acetaminophen 650 mg 01/15/21 12:40 Acetaminophen 325 Mg Tab PO Q4H PRN Pain MILD(1-3)/Fever >100.5/MERCEDES Metronidazole 500 mg in 100 mls @ 100 mls/hr 01/15/21 14:00 01/17/21 06:09 Flagyl 500 Mg/100 Ml IV 100 mls/hr Q8HR PRAVIN Administration Protocol Ceftriaxone Sodium 1 gm in 50 mls @ 100 mls/hr 01/15/21 13:00 01/16/21 13:04 Rocephin/Ns 1 Gm/50 Ml IV 100 mls/hr Q24H PRAVIN Administration Protocol Ondansetron HCl 4 mg 01/15/21 12:40 Ondansetron 4 Mg/2 Ml Inj IV Q8H PRN Nausea And Vomiting Scopolamine 1 each 01/15/21 15:00 Scopolamine Transdermal Patch 72 Hr TD 01/18/21 14:59 PREOP NR Sodium Chloride 10 ml 01/15/21 22:00 01/16/21 22:03 Sodium Chloride 0.9% 10 Ml Flush Syringe IV 10 ml BID PRAVIN Administration Sodium Chloride 10 ml 01/15/21 12:40 Sodium Chloride 0.9% 10 Ml Flush Syringe IV PRN PRN LINE FLUSH
--- NOTE | 2021-01-17 11:28 | Event Note ---
Date: 01/17/21 Full consult dictated - pt s/p shelley now increase lft's raising possible retained stone - awaiting repeat labs today - awaiting MRCP - consider ERCP based on MRCP
[2021-01-17] MEDS: cefTRIAXone/NS 1 GM/50 ML 1 GM/50 ML BAG IV SCH (13:31)
--- NOTE | 2021-01-18 00:16 | Consultation ---
DATE OF CONSULTATION: 01/17/2021 REFERRING PHYSICIAN: Dr. Salvatore Bergman. INDICATIONS: 1. Increased liver function tests. 2. Possible choledocholithiasis. HISTORY OF PRESENT ILLNESS: The patient is a 45-year-old female with history of hypothyroidism who presented with acute abdominal pain. The patient subsequently came in, was admitted on 01/15/2021. She subsequently was diagnosed with cholecystitis. The patient subsequently had a laparoscopic cholecystectomy with no IOC was performed. After surgery, the patient was noted to have increased liver function tests with the possibility of choledocholithiasis. GI is consulted to aid in management. Patient reports some abdominal pain and nausea. She denies any lower GI symptoms including diarrhea, constipation or rectal bleeding. No weight loss or anemia. No other specific complaints. PAST MEDICAL HISTORY: Hypothyroidism. MEDICATIONS: See the patient's chart. ALLERGIES: No known drug allergies. SOCIAL HISTORY: Denies alcohol, tobacco or drug abuse. FAMILY HISTORY: Negative for colon cancer, IBD, or liver disease. REVIEW OF SYSTEMS: GENERAL: Some weakness, dizziness. PULMONARY: Denies shortness of breath. No chest pain. GASTROINTESTINAL: Reports abdominal pain. All points of 13-point review of system otherwise negative. PHYSICAL EXAMINATION: VITAL SIGNS: Temperature of 98.1, pulse 85, respiratory rate 18, blood pressure 137/79: GENERAL: Fairly nourished female in no acute distress. HEENT: Pupils equal and reactive. PULMONARY: Clear to auscultation bilaterally. CARDIOVASCULAR: Regular rhythm. Normal S1, S2. ABDOMEN: Positive bowel sounds, soft. SKIN: No obvious rashes. LABORATORY DATA: Pertinent for white count of 7.0, hemoglobin and hematocrit 12.9 and 38.5, platelet count of 298. Chem-7 within normal limits. AST, ALT of 549 and 687 with an alkaline phosphatase of 175 and a total bilirubin of 3.4. CT scan performed on 01/15/2021 showed signs of cholecystitis with a question of a dilated common bile duct. ASSESSMENT: A 45-year-old female status post laparoscopic cholecystectomy after presenting with cholecystitis, now with increased liver function test and the possibility of choledocholithiasis. PLAN: 1. Review of previous CT scan. 2. Follow labs. 3. Acute hepatitis panel. 4. MRCP. 5. Consider ERCP based on MRCP results of the patient's progress. TID: [id number] RECEIPT: [id number] MARIPOSA/IRWIN
[2021-01-18] MEDS ORDERED: KETOROLAC 30 MG/1 ML INJ IV SCH (07:08)
[2021-01-18] MEDS ORDERED: oxyCODONE /ACETAMINOPHEN 5-325MG TAB PO PRN (07:08)
[2021-01-18] MEDS ORDERED: MORPHINE 2 MG/1 ML INJ IV PRN (07:08)
[2021-01-18 08:42] LABS: Basophils % (Auto) 0.3 % (0.0-1.8); Eosinophils % (Auto) 0.4 % (0.0-4.3); Hematocrit 37.5 % (30.3-42.9); Hemoglobin 13.1 gm/dl (10.1-14.3); Lymphocytes # (Auto) 1.4 K/mm3 (1.2-5.4); Lymphocytes % (Auto) 22.7 % (13.4-35.0); Mean Corpuscular HGB Conc 35 % (30-34); Mean Corpuscular Volume 90 fl (79-97); Monocytes # (Auto) 0.6 K/mm3 (0.0-0.8); Monocytes % (Auto) 9.7 % (0.0-7.3); Platelet Count 274 K/mm3 (140-440); Red Blood Count 4.15 M/mm3 (3.65-5.03); Red Cell Distribution Width 13.1 % (13.2-15.2)
[2021-01-18] MEDS: KETOROLAC 30 MG/1 ML INJ IV SCH ×3 (08:45→20:19)
[2021-01-18 08:51] LABS: Alanine Aminotransferase 383 units/L (7-56); Albumin 3.6 g/dL (3.9-5); Blood Urea Nitrogen 10 mg/dL (7-17); Calcium 8.6 mg/dL (8.4-10.2); Hemolysis Index 1
[2021-01-18 08:57] LABS: BUN/Creatinine Ratio 20
--- NOTE | 2021-01-18 10:08 | Progress Note ---
Assessment and Plan Assessment and plan: #Cholecystitis with cholelithiasis Continue IV antibiotics Status post laparoscopic cholecystectomy by surgery Has elevated LFTs and bilirubin. GI consulted Plan for MRCP to rule out any CBD stone. #Hypothyroidism Continue levothyroxine 50 mcg daily #DVT prophylaxis-Heparin History Interval history: 01/16. Patient seen and examined at bedside this morning. Has no complaints. Denies any abdominal pain. Surgery on board. Started on clear liquid diet. Labs reviewed-LFTs and bilirubin up. GI consulted. MRCP advised 01/17. Bilirubin 4.2 today. She denies any complaints. AST is trending down. Plan for MRCP today to rule out any CBD stone. Continue IV antibiotics 01/18. Bilirubin 5.2 today. She still denies any symptoms. Liver enzymes remain elevated. MRCP still pending. Continue IV antibiotics. Surgery and GI on board. Patient may need ERCP if MRCP shows a stone in the CBD. Hospitalist Physical - Physical exam Narrative exam: VITAL SIGNS: Reviewed. GENERAL: Awake HEAD: No signs of head trauma. EYES: Pupils are equal. Extraocular motions intact. Icteric MOUTH: Oropharynx is normal. NECK: No adenopathy, no JVD. CHEST: Chest with diminished breath sounds bilaterally. No wheezes, rales, or rhonchi. CARDIAC: normal S1 and S2, without murmurs, gallops, or rubs. ABDOMEN: Soft, non tender and non distended. No rebound or guarding, and no masses palpated. Bowel Sounds normal. MUSCULOSKELETAL: No edema NEUROLOGIC EXAM: Alert and oriented x3. No focal neurologic deficits SKIN: No obvious lesions - Constitutional Vitals: Temp Pulse Resp BP Pulse Ox 98.6 F 67 17 126/66 96 01/18/21 04:45 01/18/21 04:45 01/18/21 04:45 01/18/21 04:45 01/18/21 04:45 General appearance: Present: no acute distress Results - Labs CBC & Chem 7: 01/18/21 07:30 01/18/21 07:30 Labs: Laboratory Last Values WBC 6.1 K/mm3 (4.5-11.0) 01/18/21 07:30 RBC 4.15 M/mm3 (3.65-5.03) 01/18/21 07:30 Hgb 13.1 gm/dl (10.1-14.3) 01/18/21 07:30 Hct 37.5 % (30.3-42.9) 01/18/21 07:30 MCV 90 fl (79-97) 01/18/21 07:30 MCH 32 pg (28-32) 01/18/21 07:30 MCHC 35 % (30-34) H 01/18/21 07:30 RDW 13.1 % (13.2-15.2) L 01/18/21 07:30 Plt Count 274 K/mm3 (140-440) 01/18/21 07:30 Lymph % (Auto) 22.7 % (13.4-35.0) 01/18/21 07:30 [place] % (Auto) 9.7 % (0.0-7.3) H 01/18/21 07:30 Eos % (Auto) 0.4 % (0.0-4.3) 01/18/21 07:30 Baso % (Auto) 0.3 % (0.0-1.8) 01/18/21 07:30 Lymph # (Auto) 1.4 K/mm3 (1.2-5.4) 01/18/21 07:30 [place] # (Auto) 0.6 K/mm3 (0.0-0.8) 01/18/21 07:30 Eos # (Auto) 0.0 K/mm3 (0.0-0.4) 01/18/21 07:30 Baso # (Auto) 0.0 K/mm3 (0.0-0.1) 01/18/21 07:30 Seg Neutrophils % 66.9 % (40.0-70.0) 01/18/21 07:30 Seg Neutrophils # 4.1 K/mm3 (1.8-7.7) 01/18/21 07:30 Sodium 138 mmol/L (137-145) 01/18/21 07:30 Potassium 4.1 mmol/L (3.6-5.0) 01/18/21 07:30 Chloride 101.3 mmol/L (98-107) 01/18/21 07:30 Carbon Dioxide 24 mmol/L (22-30) 01/18/21 07:30 Anion Gap 17 mmol/L 01/18/21 07:30 BUN 10 mg/dL (7-17) 01/18/21 07:30 Creatinine 0.5 mg/dL (0.6-1.2) L 01/18/21 07:30 Estimated GFR > 60 ml/min 01/18/21 07:30 BUN/Creatinine Ratio 20 % 01/18/21 07:30 Glucose 72 mg/dL (65-100) 01/18/21 07:30 Calcium 8.6 mg/dL (8.4-10.2) 01/18/21 07:30 Total Bilirubin 5.20 mg/dL (0.1-1.2) H 01/18/21 07:30 AST 121 units/L (5-40) H 01/18/21 07:30 ALT 383 units/L (7-56) H 01/18/21 07:30 Alkaline Phosphatase 241 units/L (35-129) H 01/18/21 07:30 Total Protein 6.2 g/dL (6.3-8.2) L 01/18/21 07:30 Albumin 3.6 g/dL (3.9-5) L 01/18/21 07:30 Albumin/Globulin Ratio 1.4 % 01/18/21 07:30 Lipase 30 units/L (13-60) 01/15/21 02:39 Urine Color Yellow (Yellow) 01/15/21 Unknown Urine Turbidity Cloudy (Clear) 01/15/21 Unknown Urine pH 5.0 (5.0-7.0) 01/15/21 Unknown Ur Specific [place] 1.012 (1.003-1.030) 01/15/21 Unknown Urine Protein <15 mg/dl mg/dL (Negative) 01/15/21 Unknown Urine Glucose (UA) Neg mg/dL (Negative) 01/15/21 Unknown Urine Ketones Neg mg/dL (Negative) 01/15/21 Unknown Urine Blood Sm (Negative) 01/15/21 Unknown Urine Nitrite Neg (Negative) 01/15/21 Unknown Urine Bilirubin Neg (Negative) 01/15/21 Unknown Urine Urobilinogen 4.0 mg/dL (<2.0) 01/15/21 Unknown Ur Leukocyte Esterase Lg (Negative) 01/15/21 Unknown Urine WBC (Auto) 16.0 /HPF (0.0-6.0) H 01/15/21 Unknown Urine RBC (Auto) 29.0 /HPF (0.0-6.0) 01/15/21 Unknown U Epithel Cells (Auto) 17.0 /HPF (0-13.0) H 01/15/21 Unknown Urine Bacteria (Auto) 2+ /HPF (Negative) 01/15/21 Unknown Hyaline Casts 1 /LPF 01/15/21 Unknown Urine Mucus 3+ /HPF 01/15/21 Unknown Urine Yeast (Budding) Few /HPF 01/15/21 Unknown Urine HCG, Qual Negative (Negative) 01/15/21 Unknown Microbiology: Microbiology 01/15/21 Unknown Urine,Clean Catch Urine Culture - Final Ortiz/IV: Voiding Method Toilet Active Medications - Current Medications Current Medications: Generic Name Dose Route Start Last Admin Trade Name Freq PRN Reason Stop Dose Admin Acetaminophen 650 mg 01/15/21 12:40 Acetaminophen 325 Mg Tab PO Q4H PRN Pain MILD(1-3)/Fever >100.5/MERCEDES Metronidazole 500 mg in 100 mls @ 100 mls/hr 01/15/21 14:00 01/17/21 22:37 Flagyl 500 Mg/100 Ml IV 100 mls/hr Q8HR PRAVIN Administration Protocol Ceftriaxone Sodium 1 gm in 50 mls @ 100 mls/hr 01/15/21 13:00 01/17/21 13:31 Rocephin/Ns 1 Gm/50 Ml IV 100 mls/hr Q24H PRAVIN Administration Protocol Ketorolac Tromethamine 30 mg 01/18/21 08:00 01/18/21 08:45 Ketorolac 30 Mg/1 Ml Inj IV 01/23/21 07:59 30 mg Q6H PRAVIN Administration Morphine Sulfate 2 mg 01/18/21 07:08 Morphine 2 Mg/1 Ml Inj IV Q4H PRN Pain , Severe (7-10) Ondansetron HCl 4 mg 01/15/21 12:40 Ondansetron 4 Mg/2 Ml Inj IV Q8H PRN Nausea And Vomiting Oxycodone/Acetaminophen 2 tab 01/18/21 07:08 Oxycodone /Acetaminophen 5-325mg Tab PO Q4H PRN Pain, Moderate (4-6) Scopolamine 1 each 01/15/21 15:00 Scopolamine Transdermal Patch 72 Hr TD 01/18/21 14:59 PREOP NR Sodium Chloride 10 ml 01/15/21 22:00 01/17/21 22:35 Sodium Chloride 0.9% 10 Ml Flush Syringe IV 10 ml BID PRAVIN Administration Sodium Chloride 10 ml 01/15/21 12:40 Sodium Chloride 0.9% 10 Ml Flush Syringe IV PRN PRN LINE FLUSH
--- NOTE | 2021-01-18 11:33 | Magnetic Resonance Report ---
MR ABDOMEN MRCP HISTORY: Elevated liver enzymes after laparoscopic cholecystectomy TECHNIQUE: Multisequence, multiplane are MRI without contrast. Thin slab and radial MRCP images. COMPARISON: CT abdomen pelvis without contrast 01/15/2021 FINDINGS: Cholecystectomy has been performed since the previous CAT scan. There is mild to moderate fluid in th e subhepatic spaces and dejon hepatis extending into the right paracolic gutter which could indicate a biliary leak. The MRCP images demonstrate no convincing evidence for choledocholithiasis. The CBD measures 6 mm on the coronal T2 images. The intrahepatic ducts and pancreatic duct are unremarkable. Cystic duct remna nt is identified but unremarkable on MRCP. Signal characteristics of the liver parenchyma, pancreas, spleen, kidneys and adrenal glands are unre markable. The aorta and vascular structures appear widely patent. The visualized bowel loops are norm al caliber and wall thickness. No evidence for encapsulated fluid collection, adenopathy or mass. Normal bone marrow signal in the v isualized spine. Trace pleural fluid is noted at both lung bases. IMPRESSION: Recent cholecystectomy changes are evident. There is moderate fluid in the right upper quadrant as de scribed which is concerning for a biliary leak. Consider correlation with HIDA scan. No obvious choledocholithiasis. The CBD measures 6 mm. Trace bilateral pleural effusions. Signer Name: Neymar Trujillo Jr, MD Signed: 01/18/2021 11:28 AM Workstation Name: [id number]
[2021-01-18] MEDS: cefTRIAXone/NS 1 GM/50 ML 1 GM/50 ML BAG IV SCH (13:04)
[2021-01-18] MEDS: metroNIDAZOLE/NS 500 MG/100 ML 500 MG/100 ML BAG IV SCH ×4 (14:00→21:39)
--- NOTE | 2021-01-18 14:07 | Progress Note ---
Assessment and Plan POD#3 s/p lap shelley. Afebrile and stable with acute elevation of bilirubin and alk phos c/s with possible choledocholithaisis. Continued elevation of liver enzymes. HIDA scan to evaluate for leak or obstruction. Low probability of leak since she has no other clinical findings of bile leak such as pain, leukocytosis, tachycardia, fever. Will follow up results. If positive for leak or retained stone will follow GI recommendation regarding ERCP and indicated therapy. Per GI if negative HIDA, can be discharged and follow up with them in the short term. I spoke with patient at length about her current condition and MRCP findings as well as tentative plan. Subjective Date of service: 01/18/21 Patient Reports: Positive: feels better, tolerating liquids well. Negative: nausea, vomiting (no acute events. pt had mrcp with some fluid in the RUQ that was read as possible bile leak. recommended HIDA scan. Pt has no complaints and says she feels good and wants to know when she can go home. ) Objective Vital Signs - 12hr 01/18/21 01/18/21 04:45 11:08 Temperature 98.6 F 98.3 F Pulse Rate 67 64 Respiratory 17 18 Rate Blood Pressure 126/66 Blood Pressure 123/59 [Left] O2 Sat by Pulse 96 97 Oximetry - General physical appearance well developed, well nourished, no distress, no pain - Respiratory normal expansion, normal respiratory effort - Abdomen soft, not tender, not distended, other (incision s c/d/i) - Labs 01/18/21 07:30 01/18/21 07:30 Diabetes panel 01/18/21 Range/Units 07:30 Sodium 138 (137-145) mmol/L Potassium 4.1 (3.6-5.0) mmol/L Chloride 101.3 (98-107) mmol/L Carbon Dioxide 24 (22-30) mmol/L BUN 10 (7-17) mg/dL Creatinine 0.5 L (0.6-1.2) mg/dL Glucose 72 (65-100) mg/dL Calcium 8.6 (8.4-10.2) mg/dL AST 121 H (5-40) units/L ALT 383 H (7-56) units/L Alkaline Phosphatase 241 H (35-129) units/L Total Protein 6.2 L (6.3-8.2) g/dL Albumin 3.6 L (3.9-5) g/dL Calcium panel 01/18/21 Range/Units 07:30 Calcium 8.6 (8.4-10.2) mg/dL Albumin 3.6 L (3.9-5) g/dL Pituitary panel 01/18/21 Range/Units 07:30 Sodium 138 (137-145) mmol/L Potassium 4.1 (3.6-5.0) mmol/L Chloride 101.3 (98-107) mmol/L Carbon Dioxide 24 (22-30) mmol/L BUN 10 (7-17) mg/dL Creatinine 0.5 L (0.6-1.2) mg/dL Glucose 72 (65-100) mg/dL Calcium 8.6 (8.4-10.2) mg/dL Adrenal panel 01/18/21 Range/Units 07:30 Sodium 138 (137-145) mmol/L Potassium 4.1 (3.6-5.0) mmol/L Chloride 101.3 (98-107) mmol/L Carbon Dioxide 24 (22-30) mmol/L BUN 10 (7-17) mg/dL Creatinine 0.5 L (0.6-1.2) mg/dL Glucose 72 (65-100) mg/dL Calcium 8.6 (8.4-10.2) mg/dL Total Bilirubin 5.20 H (0.1-1.2) mg/dL AST 121 H (5-40) units/L ALT 383 H (7-56) units/L Alkaline Phosphatase 241 H (35-129) units/L Total Protein 6.2 L (6.3-8.2) g/dL Albumin 3.6 L (3.9-5) g/dL - Imaging MRI - abdomen: report reviewed, image reviewed
[2021-01-18] MEDS: D5W/LACTATED RINGERS 1,000 ML IV SCH (16:18)
--- NOTE | 2021-01-18 16:47 | Nuclear Medicine Report ---
NUCLEAR MEDICINE HEPATOBILIARY SCAN INDICATION / CLINICAL INFORMATION: fluid in RUQ s/p lap shelley. TECHNIQUE: Radiotracer: Tc-99m mebrofenin (by IV): mCi. COMPARISON: MRI from 01/18/2021.. FINDINGS: There is persistent diffuse uptake in the liver at 60 minutes. No uptake is seen within the region of the common bile duct or small bowel. No other uptake is identified in the abdomen. IMPRESSION: Persistent hepatic uptake without significant uptake in the common bile duct or small bowel. Findings are concerning for common bile duct obstruction, possibly related to leak. No other uptake is seen i n the abdomen to correspond with recent MRCP findings. Recommend delayed [facility]. Signer Name: Gokul Martínez MD Signed: 01/18/2021 4:43 PM Workstation Name: [id number]
--- NOTE | 2021-01-18 17:02 | Gastroenterology Progress Note ---
Assessment and Plan GI: s/p lap shelley w/ increase lft's - awaiting HIDA results - consider ERCP - follow labs - dc if negative HIDA and stable - will follow Subjective Date of service: 01/18/21 Interval history: - no GI issues overnight Objective - Constitutional Vitals: Temp Pulse Resp BP Pulse Ox 98.3 F 64 18 123/59 97 01/18/21 11:08 01/18/21 11:08 01/18/21 11:08 01/18/21 11:08 01/18/21 11:08 General appearance: no acute distress - EENT Eyes: PERRL - Respiratory Respiratory: bilateral: CTA - Cardiovascular Rhythm: regular Heart Sounds: Present: S1 & S2 - Gastrointestinal General gastrointestinal: Present: soft, non-tender, non-distended - Labs CBC & Chem 7: 01/18/21 07:30 01/18/21 07:30 Labs: Laboratory Results - last 24 hr 01/18/21 01/18/21 07:30 07:30 WBC 6.1 RBC 4.15 Hgb 13.1 Hct 37.5 MCV 90 MCH 32 MCHC 35 H RDW 13.1 L Plt Count 274 Lymph % (Auto) 22.7 [place] % (Auto) 9.7 H Eos % (Auto) 0.4 Baso % (Auto) 0.3 Lymph # (Auto) 1.4 [place] # (Auto) 0.6 Eos # (Auto) 0.0 Baso # (Auto) 0.0 Seg Neutrophils % 66.9 Seg Neutrophils # 4.1 Sodium 138 Potassium 4.1 Chloride 101.3 Carbon Dioxide 24 Anion Gap 17 BUN 10 Creatinine 0.5 L Estimated GFR > 60 BUN/Creatinine Ratio 20 Glucose 72 Calcium 8.6 Total Bilirubin 5.20 H AST 121 H ALT 383 H Alkaline Phosphatase 241 H Total Protein 6.2 L Albumin 3.6 L Albumin/Globulin Ratio 1.4
[2021-01-19] MEDS: KETOROLAC 30 MG/1 ML INJ IV SCH ×4 (01:47→20:38)
[2021-01-19 05:54] LABS: Alanine Aminotransferase 293 units/L (7-56); Albumin 3.5 g/dL (3.9-5); Blood Urea Nitrogen 9 mg/dL (7-17); Calcium 8.5 mg/dL (8.4-10.2); Hemolysis Index 3
[2021-01-19 05:59] LABS: Basophils % (Auto) 0.5 % (0.0-1.8); Eosinophils # (Auto) 0.1 K/mm3 (0.0-0.4); Eosinophils % (Auto) 1.7 % (0.0-4.3); Hematocrit 37.6 % (30.3-42.9); Lymphocytes # (Auto) 1.3 K/mm3 (1.2-5.4); Lymphocytes % (Auto) 26.1 % (13.4-35.0); Mean Corpuscular HGB Conc 35 % (30-34); Mean Corpuscular Volume 89 fl (79-97); Monocytes # (Auto) 0.5 K/mm3 (0.0-0.8); Monocytes % (Auto) 10.9 % (0.0-7.3); Platelet Count 308 K/mm3 (140-440); Red Cell Distribution Width 13.2 % (13.2-15.2)
[2021-01-19 06:01] LABS: BUN/Creatinine Ratio 23
[2021-01-19] MEDS: metroNIDAZOLE/NS 500 MG/100 ML 500 MG/100 ML BAG IV SCH ×3 (06:09→21:21)
[2021-01-19] MEDS: D5W/LACTATED RINGERS 1,000 ML IV SCH (06:12)
[2021-01-19] MEDS ORDERED: SODIUM CHLORIDE 0.9% 1000 ML 1,000 ML IV SCH (08:30)
--- NOTE | 2021-01-19 09:25 | Anesthesia Day of Surgery ---
Anesthesia Day of Surgery - Day of Surgery Patient Examined: Yes Patient H&P Reviewed: Yes Patient is NPO: Yes
[2021-01-19] MEDS ORDERED: fentaNYL 100 MCG/2 ML INJ ONE (09:26)
[2021-01-19] MEDS ORDERED: LIDOCAINE MPF (2%) 20 MG/1 ML VIAL 5 ML ONE (09:26)
[2021-01-19] MEDS ORDERED: SODIUM CHLORIDE 0.9% 100 ML ONE (09:26)
[2021-01-19] MEDS ORDERED: MIDAZOLAM 2 MG/2 ML INJ ONE (09:26)
[2021-01-19] MEDS ORDERED: propofoL 200 MG/20 ML VIAL IV ONE ×2 (09:26→10:10)
[2021-01-19] MEDS ORDERED: WATER FOR IRRIG STERILE 250 ML BOTTLE IR ONE (09:27)
[2021-01-19] MEDS ORDERED: WATER FOR IRRIG STERILE 1,000 ML BOTTLE ONE (09:27)
--- NOTE | 2021-01-19 10:16 | Progress Note ---
Assessment and Plan Assessment and plan: #Cholecystitis with cholelithiasis, biliary leak Continue IV antibiotics Status post laparoscopic cholecystectomy by surgery MRCP showed findings of suggestive of biliary leak. HIDA showed CBD obstruction GI on board Plan for ERCP today #Hypothyroidism Continue levothyroxine 50 mcg daily #DVT prophylaxis-Heparin History Interval history: 01/16. Patient seen and examined at bedside this morning. Has no complaints. Denies any abdominal pain. Surgery on board. Started on clear liquid diet. Labs reviewed-LFTs and bilirubin up. GI consulted. MRCP advised 01/17. Bilirubin 4.2 today. She denies any complaints. AST is trending down. Plan for MRCP today to rule out any CBD stone. Continue IV antibiotics 01/18. Bilirubin 5.2 today. She still denies any symptoms. Liver enzymes remain elevated. MRCP still pending. Continue IV antibiotics. Surgery and GI on board. Patient may need ERCP if MRCP shows a stone in the CBD. 01/19. MRCP reviewed. HIDA shows biliary leak with obstruction of CBD. Bilirubin up to 6.2. Plan for ERCP today. Remains NPO today Hospitalist Physical - Physical exam Narrative exam: VITAL SIGNS: Reviewed. GENERAL: Awake HEAD: No signs of head trauma. EYES: Pupils are equal. Extraocular motions intact. Icteric MOUTH: Oropharynx is normal. NECK: No adenopathy, no JVD. CHEST: Chest with diminished breath sounds bilaterally. No wheezes, rales, or rhonchi. CARDIAC: normal S1 and S2, without murmurs, gallops, or rubs. ABDOMEN: Soft, non tender and non distended. No rebound or guarding, and no masses palpated. Bowel Sounds normal. MUSCULOSKELETAL: No edema NEUROLOGIC EXAM: Alert and oriented x3. No focal neurologic deficits SKIN: No obvious lesions - Constitutional Vitals: Temp Pulse Resp BP Pulse Ox 98.0 F 65 16 124/59 96 01/19/21 04:24 01/19/21 08:00 01/19/21 08:00 01/19/21 04:24 01/19/21 08:00 Results - Labs CBC & Chem 7: 01/19/21 05:12 01/19/21 05:12 Labs: Laboratory Last Values WBC 4.9 K/mm3 (4.5-11.0) 01/19/21 05:12 RBC 4.20 M/mm3 (3.65-5.03) 01/19/21 05:12 Hgb 13.0 gm/dl (10.1-14.3) 01/19/21 05:12 Hct 37.6 % (30.3-42.9) 01/19/21 05:12 MCV 89 fl (79-97) 01/19/21 05:12 MCH 31 pg (28-32) 01/19/21 05:12 MCHC 35 % (30-34) H 01/19/21 05:12 RDW 13.2 % (13.2-15.2) 01/19/21 05:12 Plt Count 308 K/mm3 (140-440) 01/19/21 05:12 Lymph % (Auto) 26.1 % (13.4-35.0) 01/19/21 05:12 [place] % (Auto) 10.9 % (0.0-7.3) H 01/19/21 05:12 Eos % (Auto) 1.7 % (0.0-4.3) 01/19/21 05:12 Baso % (Auto) 0.5 % (0.0-1.8) 01/19/21 05:12 Lymph # (Auto) 1.3 K/mm3 (1.2-5.4) 01/19/21 05:12 [place] # (Auto) 0.5 K/mm3 (0.0-0.8) 01/19/21 05:12 Eos # (Auto) 0.1 K/mm3 (0.0-0.4) 01/19/21 05:12 Baso # (Auto) 0.0 K/mm3 (0.0-0.1) 01/19/21 05:12 Seg Neutrophils % 60.8 % (40.0-70.0) 01/19/21 05:12 Seg Neutrophils # 3.0 K/mm3 (1.8-7.7) 01/19/21 05:12 Sodium 134 mmol/L (137-145) L 01/19/21 05:12 Potassium 3.5 mmol/L (3.6-5.0) L 01/19/21 05:12 Chloride 101.2 mmol/L (98-107) 01/19/21 05:12 Carbon Dioxide 22 mmol/L (22-30) 01/19/21 05:12 Anion Gap 14 mmol/L 01/19/21 05:12 BUN 9 mg/dL (7-17) 01/19/21 05:12 Creatinine 0.4 mg/dL (0.6-1.2) L 01/19/21 05:12 Estimated GFR > 60 ml/min 01/19/21 05:12 BUN/Creatinine Ratio 23 % 01/19/21 05:12 Glucose 95 mg/dL (65-100) 01/19/21 05:12 Calcium 8.5 mg/dL (8.4-10.2) 01/19/21 05:12 Total Bilirubin 6.30 mg/dL (0.1-1.2) H 01/19/21 05:12 AST 91 units/L (5-40) H 01/19/21 05:12 ALT 293 units/L (7-56) H 01/19/21 05:12 Alkaline Phosphatase 272 units/L (35-129) H 01/19/21 05:12 Total Protein 6.2 g/dL (6.3-8.2) L 01/19/21 05:12 Albumin 3.5 g/dL (3.9-5) L 01/19/21 05:12 Albumin/Globulin Ratio 1.3 % 01/19/21 05:12 Lipase 30 units/L (13-60) 01/15/21 02:39 Urine Color Yellow (Yellow) 01/15/21 Unknown Urine Turbidity Cloudy (Clear) 01/15/21 Unknown Urine pH 5.0 (5.0-7.0) 01/15/21 Unknown Ur Specific [place] 1.012 (1.003-1.030) 01/15/21 Unknown Urine Protein <15 mg/dl mg/dL (Negative) 01/15/21 Unknown Urine Glucose (UA) Neg mg/dL (Negative) 01/15/21 Unknown Urine Ketones Neg mg/dL (Negative) 01/15/21 Unknown Urine Blood Sm (Negative) 01/15/21 Unknown Urine Nitrite Neg (Negative) 01/15/21 Unknown Urine Bilirubin Neg (Negative) 01/15/21 Unknown Urine Urobilinogen 4.0 mg/dL (<2.0) 01/15/21 Unknown Ur Leukocyte Esterase Lg (Negative) 01/15/21 Unknown Urine WBC (Auto) 16.0 /HPF (0.0-6.0) H 01/15/21 Unknown Urine RBC (Auto) 29.0 /HPF (0.0-6.0) 01/15/21 Unknown U Epithel Cells (Auto) 17.0 /HPF (0-13.0) H 01/15/21 Unknown Urine Bacteria (Auto) 2+ /HPF (Negative) 01/15/21 Unknown Hyaline Casts 1 /LPF 01/15/21 Unknown Urine Mucus 3+ /HPF 01/15/21 Unknown Urine Yeast (Budding) Few /HPF 01/15/21 Unknown Urine HCG, Qual Negative (Negative) 01/15/21 Unknown Ortiz/IV: Voiding Method Toilet Active Medications - Current Medications Current Medications: Generic Name Dose Route Start Last Admin Trade Name Freq PRN Reason Stop Dose Admin Acetaminophen 650 mg 01/15/21 12:40 Acetaminophen 325 Mg Tab PO Q4H PRN Pain MILD(1-3)/Fever >100.5/MERCEDES Metronidazole 500 mg in 100 mls @ 100 mls/hr 01/15/21 14:00 01/19/21 06:09 Flagyl 500 Mg/100 Ml IV 100 mls/hr Q8HR PRAVIN Administration Protocol Ceftriaxone Sodium 1 gm in 50 mls @ 100 mls/hr 01/15/21 13:00 01/18/21 13:04 Rocephin/Ns 1 Gm/50 Ml IV 100 mls/hr Q24H PRAVIN Administration Protocol Dextrose/Lactated Ringer's 1,000 mls @ 75 mls/hr 01/18/21 14:00 01/19/21 06:12 D5lr IV 75 mls/hr DIRECT PRAIVN Administration Sodium Chloride 1,000 mls @ 50 mls/hr 01/19/21 08:30 Nacl 0.9% 1000 Ml IV 01/20/21 08:29 DIRECT PRAVIN Ketorolac Tromethamine 30 mg 01/18/21 08:00 01/19/21 01:47 Ketorolac 30 Mg/1 Ml Inj IV 01/23/21 07:59 30 mg Q6H PRAVIN Administration Morphine Sulfate 2 mg 01/18/21 07:08 Morphine 2 Mg/1 Ml Inj IV Q4H PRN Pain , Severe (7-10) Ondansetron HCl 4 mg 01/15/21 12:40 Ondansetron 4 Mg/2 Ml Inj IV Q8H PRN Nausea And Vomiting Oxycodone/Acetaminophen 2 tab 01/18/21 07:08 Oxycodone /Acetaminophen 5-325mg Tab PO Q4H PRN Pain, Moderate (4-6) Sodium Chloride 10 ml 01/15/21 22:00 01/18/21 21:40 Sodium Chloride 0.9% 10 Ml Flush Syringe IV 10 ml BID PRAVIN Administration Sodium Chloride 10 ml 01/15/21 12:40 Sodium Chloride 0.9% 10 Ml Flush Syringe IV PRN PRN LINE FLUSH
--- NOTE | 2021-01-19 11:31 | Fluoroscopy Report ---
ERCP HISTORY: Bile leak, choledocholithiasis FINDINGS: 5.1 minutes of fluoroscopy time was provided by radiology during ERCP by gastroenterology. 11 fluoroscopic images of the right upper quadrant are presented demonstrating an endoscope cannulati ng the biliary tree with retrograde injection of contrast agent. Common bile duct stones were removed per the operative report. Papillotomy and sphincterotomy was performed. No obvious biliary leak. Ple ase correlate with the procedural report as needed. Signer Name: Neymar Trujillo Jr, MD Signed: 01/19/2021 11:27 AM Workstation Name: [id number]
--- NOTE | 2021-01-19 13:17 | Post Operative Note ---
Pre-op diagnosis: choledocholithiasis Post-op diagnosis: same Findings: ERCP: nl ampulla - nl pancreatogram - cholangiogram w/ filling defect - sphinterotomy performed - small stone x 1 w/ sludge removed - negative other Procedure: ERCP w/ stone removal Anesthesia: MAC Surgeon: JIMI SANTOYO Estimated blood loss: none Pathology: list Specimen disposition: to lab Condition: stable Disposition: floor
--- NOTE | 2021-01-19 13:51 | Operative Report ---
DATE OF SURGERY: 01/19/2021 PROCEDURE: ERCP with sphincterotomy and stone extraction. INDICATIONS: 1. Choledocholithiasis. 2. Increased liver function tests. MEDICATIONS: Propofol per [employer] CABLE TOOL. COMPLICATIONS: None. DESCRIPTION OF PROCEDURE: The patient brought to the procedure suite. The patient had the procedure discussed with her at length. All risks, complications and benefits discussed, after which the patient signed for the procedure performed. The patient was in left lateral decubitus position. Mouth block placed in patient's oral cavity. After adequate sedation with medications above, ERCP scope placed in the mouth and brought to the level of the second portion of the duodenum. No retroflexion view was performed. The patient's vital signs remained stable throughout the procedure. FINDINGS: There was a grossly normal appearing esophagus and stomach. The ampulla was noted. The second portion of duodenum appeared normal. Sphincterotome with a guidewire was then inserted. Pancreatogram showed a normal-appearing pancreatic duct. With the aid of a guidewire, cholangiogram was performed. Cholangiogram showed approximately 8-10 mm common bile duct with a single distal filling defect. Medium sphincterotomy was then performed. A 9-12 mm balloon was then used to sweep the common bile duct with 1 small stone removed with some sludge and debris. Occlusion cholangiogram showed no other filling defects. The patient tolerated the procedure well. No complications noted during the procedure. It should be noted no stents were placed. IMPRESSION: 1. Grossly normal-appearing esophagus and stomach. 2. Normal ampulla. 3. Normal pancreatogram. 4. Cholangiogram with filling defect and borderline common bile duct. 5. Sphincterotomy performed. Stone x1 with sludge and debris removed. 6. Otherwise, no interventions. RECOMMENDATIONS: 1. Follow labs. 2. Avoid NSAIDs and aspirin for 5-7 days. 3. If LFT is stable in the morning, okay to discharge from GI standpoint. TID: [id number] RECEIPT: [id number] CAB/DEISY cc: JIMI SANTOYO MD
--- NOTE | 2021-01-19 14:19 | Post Anesthesia Evaluation ---
- Post Anesthesia Evaluation Patient Participated: Yes Airway Patent: Yes Stable Respiratory Function: Yes Nausea/Vomiting: No Temp > 96.8F: Yes Pain Manageable: Yes Adequeate Hydration: Yes Anesthesia Complications: No Block Receding Appropriately: Not Applicable Patient on Ventilator: No
[2021-01-19] MEDS: cefTRIAXone/NS 1 GM/50 ML 1 GM/50 ML BAG IV SCH (19:06)
[2021-01-19 21:24] VITALS: BP 125/51
[2021-01-20] MEDS: KETOROLAC 30 MG/1 ML INJ IV SCH (01:57)
[2021-01-20] MEDS: D5W/LACTATED RINGERS 1,000 ML IV SCH (01:57)
[2021-01-20] MEDS: metroNIDAZOLE/NS 500 MG/100 ML 500 MG/100 ML BAG IV SCH (05:39)
[2021-01-20 06:29] LABS: Basophils % (Auto) 0.3 % (0.0-1.8); Eosinophils # (Auto) 0.1 K/mm3 (0.0-0.4); Eosinophils % (Auto) 2.2 % (0.0-4.3); Hematocrit 37.2 % (30.3-42.9); Hemoglobin 13.1 gm/dl (10.1-14.3); Lymphocytes # (Auto) 1.5 K/mm3 (1.2-5.4); Lymphocytes % (Auto) 27.6 % (13.4-35.0); Mean Corpuscular HGB Conc 35 % (30-34); Mean Corpuscular Volume 90 fl (79-97); Monocytes # (Auto) 0.6 K/mm3 (0.0-0.8); Monocytes % (Auto) 9.9 % (0.0-7.3); Platelet Count 283 K/mm3 (140-440); Red Blood Count 4.14 M/mm3 (3.65-5.03); Red Cell Distribution Width 13.1 % (13.2-15.2)
[2021-01-20 06:59] LABS: Alanine Aminotransferase 242 units/L (7-56); Albumin 3.3 g/dL (3.9-5); Blood Urea Nitrogen 8 mg/dL (7-17); Calcium 8.9 mg/dL (8.4-10.2); Hemolysis Index 4
[2021-01-20 07:00] LABS: BUN/Creatinine Ratio 20
--- NOTE | 2021-01-20 09:21 | Discharge Summary ---
Providers - Providers Date of Admission: 01/15/21 07:37 Date of discharge: 01/20/21 Attending physician: JERRY CORMIER 01/15/21 07:38 Consult to Physician [CONS] Stat Comment: Consulting Provider: SKIP CORREIA Physician Instructions: Reason For Exam: Acute cholecystitis [facility] Condition: Stable Hospital course: 45 year old female with a medical history of hypothyroidism presented to ED overnight with acute worsening abdominal pain. Patient states that she has had similar pain in the past was told that she had gallstones. She was supposed to see general surgeon but has not been able to do that. She started having similar abdominal pain last night and presented to the emergency room for evaluation. Here in the ER, abdominal imaging showed stones with possible cholecystitis and she is now being admitted for further evaluation. Surgery has evaluated the patient and she will be going for laparoscopic cholecystectomy. Hospital course 01/16. Patient seen and examined at bedside this morning. Has no complaints. Denies any abdominal pain. Surgery on board. Started on clear liquid diet. Labs reviewed-LFTs and bilirubin up. GI consulted. MRCP advised 01/17. Bilirubin 4.2 today. She denies any complaints. AST is trending down. Plan for MRCP today to rule out any CBD stone. Continue IV antibiotics 01/18. Bilirubin 5.2 today. She still denies any symptoms. Liver enzymes remain elevated. MRCP still pending. Continue IV antibiotics. Surgery and GI on board. Patient may need ERCP if MRCP shows a stone in the CBD. 01/19. MRCP reviewed. HIDA shows biliary leak with obstruction of CBD. Bilirubin up to 6.2. Plan for ERCP today. Remains NPO today 01/20. She had ERCP with sphincterotomy and removal of stone and sludge from the CBD. She has been started on a diet. Her bilirubin has dropped to 3 from 6.2. Plan to discharge today to follow up with GI. She will complete antibiotics at home. Disposition: - TO HOME OR SELFCARE Final Discharge Diagnosis (Prints w/discharge instructions): Acute cholecystitis with choledocholithiasis Time spent for discharge: 45 mins Core Measure Documentation - Palliative Care Palliative Care/ Comfort Measures: Not Applicable - Core Measures Any of the following diagnoses?: none Exam - Physical Exam Narrative exam: VITAL SIGNS: Reviewed. GENERAL: Awake HEAD: No signs of head trauma. EYES: Pupils are equal. Extraocular motions intact. Icteric MOUTH: Oropharynx is normal. NECK: No adenopathy, no JVD. CHEST: Chest with diminished breath sounds bilaterally. No wheezes, rales, or rhonchi. CARDIAC: normal S1 and S2, without murmurs, gallops, or rubs. ABDOMEN: Soft, non tender and non distended. No rebound or guarding, and no masses palpated. Bowel Sounds normal. MUSCULOSKELETAL: No edema NEUROLOGIC EXAM: Alert and oriented x3. No focal neurologic deficits SKIN: No obvious lesions - Constitutional Vitals: Temp Pulse Resp BP Pulse Ox 99.7 F H 60 17 125/51 96 01/19/21 20:57 01/19/21 20:57 01/20/21 02:27 01/19/21 20:57 01/19/21 20:57 Plan Diet: low fat Additional Instructions: Continue antibiotics as prescribed. Follow-up with GI in a week. Follow-up with general surgery in 1 to 2 weeks Follow up with: FILIPPO JURADOPENNSBORO MD JOSE [Primary Care Provider] - 3-5 Days JIMI SANTOYO MD [Staff Physician] - 7 Days SKIP CORREIA MD [Staff Physician] - 7 Days Prescriptions: metroNIDAZOLE [Flagyl] 500 mg PO Q8HR #15 tablet levoFLOXacin [Levaquin] 750 mg PO QDAY #3 tablet
--- NOTE | 2021-01-20 21:47 | Gastroenterology Progress Note ---
Assessment and Plan GI: s/p ercp w/ stone removal - diet as tolerated - ok to dc - will sign off Subjective Date of service: 01/20/21 Interval history: - no GI complaints overnight Objective - Constitutional Vitals: Temp Pulse Resp BP Pulse Ox 99.7 F H 60 18 125/51 97 01/19/21 20:57 01/19/21 20:57 01/20/21 08:00 01/19/21 20:57 01/20/21 08:00 General appearance: no acute distress - EENT Eyes: PERRL - Respiratory Respiratory: bilateral: CTA - Cardiovascular Rhythm: regular Heart Sounds: Present: S1 & S2 - Gastrointestinal General gastrointestinal: Present: soft, non-tender, non-distended - Labs CBC & Chem 7: 01/20/21 06:08 01/20/21 06:08 Labs: Laboratory Results - last 24 hr 01/20/21 01/20/21 06:08 06:08 WBC 5.6 RBC 4.14 Hgb 13.1 Hct 37.2 MCV 90 MCH 32 MCHC 35 H RDW 13.1 L Plt Count 283 Lymph % (Auto) 27.6 [place] % (Auto) 9.9 H Eos % (Auto) 2.2 Baso % (Auto) 0.3 Lymph # (Auto) 1.5 [place] # (Auto) 0.6 Eos # (Auto) 0.1 Baso # (Auto) 0.0 Seg Neutrophils % 60.0 Seg Neutrophils # 3.4 Sodium 139 Potassium 3.6 Chloride 105.4 Carbon Dioxide 24 Anion Gap 13 BUN 8 Creatinine 0.4 L Estimated GFR > 60 BUN/Creatinine Ratio 20 Glucose 95 Calcium 8.9 Total Bilirubin 3.10 H AST 75 H ALT 242 H Alkaline Phosphatase 272 H Total Protein 6.3 Albumin 3.3 L Albumin/Globulin Ratio 1.1
== END 2021-01-20 16:09 | disposition home or self-care (01) | DRG 419 ==
LOC: ED 00:22 → INTOOBSV 07:37 → 3A 07:37 → OBSVTOIN 07:37 → 3A 08:00
PROVIDERS: ADMIT Internal Medicine; ATTEND Internal Medicine
PROC: 0FT44ZZ Resection of Gallbladder, Percutaneous Endoscopic Approach (ICD-10-PCS; principal; 2021-01-15)
PROC: 0FC98ZZ Extirpation of Matter from Common Bile Duct, Via Natural or Artificial Opening Endoscopic (ICD-10-PCS; 2021-01-19)
DX: K80.00 Calculus of gallbladder with acute cholecystitis without obstruction (principal); R79.89 Other specified abnormal findings of blood chemistry; E03.9 Hypothyroidism, unspecified; K83.8 Other specified diseases of biliary tract; D72.829 Elevated white blood cell count, unspecified; Z72.89 Other problems related to lifestyle; Z79.899 Other long term (current) drug therapy; Z79.891 Long term (current) use of opiate analgesic; Z79.01 Long term (current) use of anticoagulants
CPT/HCPCS: 36415; 74176; 74181; 74330; 78226; 80053; 81001; 81025; 83690; 85025; 87086; 88304; 96365; 96375; G0378; A4217; A9537; C1726; J0330; J0696; J1100; J1885; J2250; J2270; J2405; J2543; J2704; J2710; J3010; J7030; J7120; J7121; Q9967